=== PATIENT | female | born 1950 | race Caucasian/White ===

== ENCOUNTER 2019-07-05 08:05 | Observation (INO) | payer MEDICARE, BC ==
--- NOTE | 2019-06-21 16:32 | HP ---
HISTORY AND PHYSICAL: DATE OF ADMISSION/SURGERY: 07/05/19 DATE OF OFFICE VISIT: 06/20/19 SURGEON: Kelsea Adhikari MD * (DICTATED BY WILLIS PASTOR) PROCEDURE: Right total knee arthroplasty. CHIEF COMPLAINT: Right knee pain. HISTORY OF PRESENT ILLNESS: Ms. Birch is a 69-year-old female with end- stage osteoarthritis of the right knee. She has failed conservative treatment and elected to proceed with a right total knee arthroplasty. PAST MEDICAL HISTORY: Morbid obesity, hypertension, hypothyroidism, and GERD. PAST SURGICAL HISTORY: Hysterectomy and cataract removal. CURRENT MEDICATIONS: 1. Carafate 2 teaspoons 4 times a day. 2. Omeprazole 40 mg a day. 3. Levothyroxine 137 mcg a day. ALLERGIES: To LEVAQUIN. FAMILY HISTORY: Coronary artery disease and diabetes. SOCIAL HISTORY: She is a 68-year-old female. She lives with her . She does not smoke. REVIEW OF SYSTEMS: A complete 14-point review of systems was reviewed with the patient. It was positive for hypothyroidism and GERD. She denies history of DVT, PE, hepatitis, HIV, or anesthesia problems. PHYSICAL EXAMINATION GENERAL: She is well developed, well nourished, in no acute distress. VITAL SIGNS: She stands 5 feet 6 inches tall, weighs approximately 280 pounds. The patient declined to perform a weight. Blood pressure is 172/100, heart rate is 76. HEENT: Normocephalic, atraumatic. NECK: Supple. No palpable lymph nodes. PULMONARY: The lungs are clear to auscultation bilaterally. CARDIO: Regular rate and rhythm. Strong S1, S2. ABDOMEN: Soft, nontender, nondistended. NEUROLOGICAL: She is alert and oriented x3. MUSCULOSKELETAL: Right lower extremity: The skin is intact. There are no open wounds or abrasions. There is a moderate effusion of the right knee joint. Range of motion is 10 to 100 degrees of flexion. She is able to dorsiflex and plantarflex, has a 2+ dorsalis pedis pulse and intact sensation. ASSESSMENT AND PLAN: Ms. Birch is a 68-year-old female with end-stage osteoarthritis of the right knee. She has failed conservative treatment and elected to proceed with a right total knee arthroplasty. The surgery is scheduled for 07/05/[address] Adhikari discussed the risks and benefits of the surgery at today's visit and all of her questions were answered. She will follow up with Dr. Adhikari 2 weeks after the surgery. WILLIS PASTOR [id number]/[facility] #: [id number] ERLINDA
[~2019-07-05 08:05] MED LIST: Acetaminophen TAB* 325 MG PO ONE; Gabapentin CAP(*) 300 MG PO ONE; Lactated Ringers 1000 ML Bag* 1,000 ML IV SCH; celeCOXIB CAP* 200 MG PO ONE
--- OUTSIDE RECORDS SUMMARY | 2019-07-05 08:09 | XMS REPORT | Continuity of Care Document ---
:1950 External Reference #:[id number] Author Name Junaid Enriquez DO Address [address] [place] [address] Care Team Providers Name Role Phone Kelsea Adhikari DR - Adult Care Team Information Manager Human Resources [phone] Reconstructive Orthopaedic Surgery Problems Active Problems Provider Date Chronic sinusitis Junaid Enriquez DO Onset: 08/15/2012 Hypothyroidism Junaid Enriquez DO Onset: 08/15/2012 Gastroesophageal reflux disease Junaid Enriquez DO Onset: 08/15/2012 Obesity Junaid Enriquez DO Onset: 08/15/2012 Benign essential hypertension Junaid nEriquez DO Onset: 08/15/2012 Benign hypertensive heart disease without Zaire Lima MD Onset: 2011 congestive heart failure Mitral valve disorder Zaire Lima MD Onset: 04/28/2012 Morbid obesity Zaire Lima MD Onset: 04/28/2012 Edema Junaid Enriquez DO Onset: 05/22/2014 Type 2 diabetes mellitus Junaid Enriquez DO Onset: 10/14/2014 Peptic reflux disease Junaid Enriquez DO Onset: 05/22/2014 Peripheral venous insufficiency Zaire Lima MD Onset: 10/05/2017 Social History Type Date Description Comments Sex Unknown ETOH Use Denies alcohol use Tobacco Use Start: Unknown Patient has never smoked Recreational Drug Use Denies Drug Use Smoking Status Reviewed: 04/09/19 Patient has never smoked Allergies, Adverse Reactions, Alerts Active Allergies Reaction Severity Comments Date Levaquin SOB, racing heart 04/22/2014 Mold 06/04/2014 Environmental 06/04/2014 [place] Thyroid "Foggy", Itchy, SOB, Diarrhea 07/25/2017 Escitalopram Severe Headache, Sweating, SOB 07/25/2017 Glipizide Extreme Heartburn 03/01/2019 Glyburide Dizziness 03/06/2019 Medications Active Medications SIG Qnty Indications Ordering Date Provider Omeprazole 1 by mouth every 90caps Junaid Enriquez, 01/04/[address]aps[address] DO DR Levocetirizine 1 by mouth every 90tabs Junaid Enriquez, 09/27/2018 Dihydrochloride day DO 5mg Tablets Levothyroxine Sodium 1 by mouth every 90tabs Junaid Enriquez, 08/15/2018 day DO 137mcg Tablets Meloxicam take one tablet by 30tabs Junaid Enriquez, 06/08/2018 15mg Tablets mouth every day DO prn pain with food Fluticasone Propionate 1 spray each 16gm J32.9 Junaid Enriquez, 10/01/2017 nostril 1-2 times DO 50mcg/Act Suspension a day Ventolin HFA 2 puffs every 4 1units 466.0 Junaid Enriquez, 06/04/2014 108(90Base) hours as needed DO mcg/Act Aerosol for sob/cough Carafate 10 milliliters by 1260ml Junaid Enriquez, 11/01/2012 1GM/10ML mouth every 6 DO Suspension hours as needed for heartburn Probiotic 1 by mouth every Unknown Capsules day Tumeric 1 po daily Unknown Multivitamin Adults 1 by mouth every Unknown 50+ day Adlt 50+ Tablets Tramadol HCL one or two by Unknown 50mg Tablets mouth four times a day as needed pain History Medications Amoxicillin/Clavulanate 1 by mouth 14tabs J32.9 Mina, 04/19/2019 - Potassium twice a day DO Junaid 04/26/2019 875-125mg Tablets Glyburide 1 by mouth 7tabs Mina, 03/01/2019 - 2.5mg Tablets every day DO Junaid 03/06/2019 Glipizide ER 1 by mouth 90tabs Mina, 01/04/2019 - 2.5mg Tablets ER 24HR every day DO Junaid 03/01/2019 Azithromycin 2 by mouth x 6tabs Mina, 01/04/2019 - 250mg Tablets 1, then 1 by Junaid 01/09/2019 mouth daily x 4 days Medications Administered in Office Medication SIG Qnty Indications Ordering Provider Date Depo Medrol 80 MG Junaid Enriquez, 02/15/2018 Injection Depo Medrol 40 MG Junaid Enriquez, 02/27/2016 Injection Depo Medrol 80 MG Junaid Enriquez, DO 09/10/2015 Injection Immunizations CPT Code Status Date Vaccine Reaction Lot # [id number] Given 03/05/2019 Flu Vaccine NOS 30320 Given 08/16/2018 Shingrix (Shingles) Zoster Vaccine HZV, Recombinant, Subunit, Adj 54978 Given 02/24/2018 Fluzone Highdose Age 65 And Over Preservative & Antibiotic Free 70680 Given 07/13/2017 Pneumococcal 23 Immunization Im inj completed, Pt [id number] Adult Or Immunosuppressed tolerated well Patient Q2039 Given 02/13/2017 [place] [address] Given 02/19/2016 Prevnar 13 Pneumococal Conjugate Vaccine 78365 Given 02/19/2016 Fluzone Highdose Age 65 And Over Preservative & Antibiotic Free 19110 Given 03/04/2014 Fluzone Highdose Age 65 And [place] Over Preservative & Antibiotic Free 20278 Given 02/09/2013 Afluria Or Fluvirin Flu Vac Intramuscular 87432 Given 08/15/2012 Tdap (Adacel) Ages 7 And Above Only 52602 Given 03/11/2010 Afluria Or Fluvirin Flu Vac [id number] Intramuscular 13209 Given 03/01/2008 Afluria Or Fluvirin Flu Vac Intramuscular 29071 Given 02/28/2007 Afluria Or Fluvirin Flu Vac Intramuscular 17735 Refused 02/15/2018 Fluzone Highdose Age 65 And Over Preservative & Antibiotic Free Vital Signs Date Vital Result Comment 06/07/2019 9:30am Heart Rate 76 /min BP Systolic 136 mmHg BP Diastolic 84 mmHg Respiratory Rate 20 /min 04/09/2019 10:04am Heart Rate 80 /min BP Systolic 138 mmHg BP Diastolic 86 mmHg Respiratory Rate 24 /min Height 66 inches 5'6" Results Test Acquired Date Facility Test Result H/L Range Note CBC with Auto Diff-fcmg 06/07/2019 [facility] WBC 7.1 K/uL 4.1-11.0 1 RBC 4.87 M/uL 4.00-5.40 2 Hemoglobin 14.2 gm/dL 12.0-16.0 3 Hematocrit 42.4 % 36.0-47.0 4 MCV 87.0 fL 80.0-95.0 5 MCH 29.1 pg 27.0-32.0 6 MCHC 33.4 g/dL 32.0-36.0 7 RDW 13.6 % 10.5-14.5 8 PLT Count 213 K/ul 150-400 9 MPV 8.8 FL 7.1-10.7 Neutrophil 60.5 % 35.0-75.0 10 Lymphocyte 27.0 % 16.0-52.0 11 Monocyte 9.2 % High 0.0-8.0 12 Eosinophil 2.2 % 0.0-5.0 Basophil 1.1 % 0.0-4.0 Abs Neutrophils 4.3 K/uL 1.8-7.7 13 Abs Lymphocytes 1.9 K/uL 1.2-4.8 14 Abs Monocytes 0.7 K/uL 0.0-0.8 15 Abs Eosinophils 0.2 K/uL 0.0-0.5 16 Abs Basophils 0.1 K/uL 0.0-0.2 17 Basic (BMP) 06/07/2019 [facility] Sodium 139 mmol/L 135-146 18 Potassium 4.3 mmol/L 3.5-5.2 Chloride# 103 mmol/L 97-110 19 Carbon Dioxide 27 mmol/L 24-34 Glucose 128 mg/dL High 70-105 BUN 11 mg/dL 6-26 Creatinine 0.7 mg/dL 0.5-1.4 Calcium 9.3 mg/dL 8.5-10.5 20 Female Egfr 88 >60 21 Male Egfr 96 >60 22 Anion Gap 9 mmol/L 5-15 23 [facility] 7.3 % High 4.1-5.9 Estimated Average Glucose Calc 163 mg/dL High 71-140 Laboratory test 04/04/2019 [facility] TSH 0.41 uIU/mL 0.35-4.94 finding Laboratory test 03/09/2019 [facility] H. Pylori Stool Ag SEE NOTE 24 finding Hemoglobin A1c 12/28/2018 [facility] Hemoglobin A1c 7.6 % High 4.1-5.9 Estimated Average Glucose Calc 171 mg/dL High 71-140 CBC with Auto Diff-fcmg 12/28/2018 [facility] WBC 7.7 K/uL 4.1-11.0 RBC 4.96 M/uL 4.00-5.40 Hemoglobin 14.4 gm/dL 12.0-16.0 Hematocrit 43.1 % 36.0-47.0 MCV 86.7 fL 80.0-97.0 MCH 28.9 pg 27.0-32.0 MCHC 33.4 g/dL 32.0-36.0 RDW 14.2 % 11.5-14.5 PLT Count 246 K/ul 140-400 MPV 8.8 FL 7.1-10.7 Neutrophil 58.8 % 35.0-75.0 Lymphocyte 28.9 % 16.0-52.0 Monocyte 8.8 % 2.0-10.0 Eosinophil 2.9 % 0.0-5.0 Basophil 0.6 % 0.0-4.0 Abs Neutrophils 4.5 K/uL 2.1-8.0 Abs Lymphocytes 2.2 K/uL 0.8-5.5 Abs Monocytes 0.7 K/uL 0.1-1.0 Abs Eosinophils 0.2 K/uL 0.0-0.5 Abs Basophils 0.0 K/uL 0.0-0.3 Basic (BMP) 12/28/2018 [facility] Sodium 140 mmol/L 135-146 25 Potassium 4.2 mmol/L 3.5-5.2 Chloride# 103 mmol/L 97-110 26 Carbon Dioxide 24 mmol/L 24-34 Glucose 172 mg/dL High 70-105 BUN 12 mg/dL 6-26 Creatinine 0.8 mg/dL 0.5-1.4 Calcium 9.7 mg/dL 8.5-10.5 27 Female Egfr 78 >60 28 Male Egfr 92 >60 29 Anion Gap 13 mmol/L 5-15 30 Laboratory test finding 12/28/2018 [facility] TSH 0.71 uIU/mL 0.35-4.94 Lipid Treatment 12/28/2018 [facility] Cholesterol 206 mg/dL High 50-199 Triglycerides 161 mg/dL 30-200 HDL 46 mg/dL 35-85 31 Chol/ HDL Ratio 4.5 ratio 3.7-5.6 VLDL 32 mg/dL High 2-29 LDL (Calc) 128 mg/dL High 20-99 32 Alt 23 U/L 3-42 Ast 23 U/L 8-42 1 Updated Reference Range 03/2019 2 Updated Reference Range 03/2019 3 Updated Reference Range 03/2019 4 Updated Reference Range 03/2019 5 Updated Reference Range 03/2019 6 Updated Reference Range 03/2019 7 Updated Reference range 03/2019 8 Updated Reference range 03/2019 9 Updated Reference Range 03/2019 10 Updated Reference Range 03/2019 11 Updated Reference Range 03/2019 12 Updated Reference Range 03/2019 13 Updated Reference Range 03/2019 14 Updated Reference Range 03/2019 15 Updated Reference Range 03/2019 16 Updated Reference Range 03/2019 17 Updated Reference Range 03/2019 18 Updated reference range on new analyzer 19 Updated reference range on new analyzer 20 Updated reference range 09-13-2018 21 Concerning GFR Guidelines for Americans: Normal function or mild renal disease, if clinically at risk: >/= 60 mL/min Moderately decreased: 30-59 Severely decreased: 15-29 Renal failure: <15 There is reduced accuracy above 60ml/min/1.73 m squared, but the numeric value may be clinically useful in the near 60 range 22 Concerning GFR Guidelines: Normal function or mild renal disease, if clinically at risk: >/= 60 mL/min Moderately decreased: 30-59 Severely decreased: 15-29 Renal failure: <15 There is reduced accuracy above 60ml/min/1.73 m squared, but the numeric value may be clinically useful in the near 60 range Glomerular Filtration Rate (GFR) is estimated based on the CKD-EPI equation, which assumes a steady state for creatinine as recommended by the National Kidney Disease Education Program in conjunction with the National Institutes of Health and the National Kidney Foundation. Clinical conditions in which it may be necessary to measure GFR by using clearance methods include extremes of age and body size, severe malnutrition or obesity, diseases of skeletal muscle, paraplegia or quadriplegia, vegetarian diet, rapidly changing kidney function, and calculation of the dose of potentially toxic drugs that are excreted by the kidneys. 23 Updated Reference Range 24 SPECIMEN DESCRIPTION STOOL RESULT NEGATIVE FOR H. PYLORI ANTIGEN BY EIA REPORT STATUS FINAL 03/10/2019 Unless otherwise specified, testing performed by [facility] [address] [place] [id number] 25 Updated reference range on new analyzer 26 Updated reference range on new analyzer 27 Updated reference range 09-13-2018 28 Concerning GFR Guidelines for Americans: Normal function or mild renal disease, if clinically at risk: >/= 60 mL/min Moderately decreased: 30-59 Severely decreased: 15-29 Renal failure: <15 There is reduced accuracy above 60ml/min/1.73 m squared, but the numeric value may be clinically useful in the near 60 range 29 Concerning GFR Guidelines: Normal function or mild renal disease, if clinically at risk: >/= 60 mL/min Moderately decreased: 30-59 Severely decreased: 15-29 Renal failure: <15 There is reduced accuracy above 60ml/min/1.73 m squared, but the numeric value may be clinically useful in the near 60 range Glomerular Filtration Rate (GFR) is estimated based on the CKD-EPI equation, which assumes a steady state for creatinine as recommended by the National Kidney Disease Education Program in conjunction with the National Institutes of Health and the National Kidney Foundation. Clinical conditions in which it may be necessary to measure GFR by using clearance methods include extremes of age and body size, severe malnutrition or obesity, diseases of skeletal muscle, paraplegia or quadriplegia, vegetarian diet, rapidly changing kidney function, and calculation of the dose of potentially toxic drugs that are excreted by the kidneys. 30 Updated Reference Range -2017 31 Per NCEP ATP III Guidelines: Results lower than 40 mg/dL are suggestive of increased risk for coronary artery disease. Results > or = to 60 mg/dL are considered a negative risk factor. 32 Per NCEP ATP III Guidelines: Normal Population <130 Patients with medical conditions: CHD/DM Optimal: <100 Borderline high: 130-159 High: 160-189 Very high: >189 Procedures Date Code Description Status 04/09/2019 93061 Brief Emotional/Behav Assessment W/ Scoring Doc Per Completed Standard Inst 03/14/2017 [id number] Mammogram Completed 02/27/2015 [id number] Mammogram Completed 02/27/2009 [id number] Mammogram Completed 01/15/2004 [id number] Flexible Sigmoidoscopy Completed Medical Devices Description No Information Available Encounters Type Date Location Provider Dx Diagnosis Office Visit 04/09/2019 Junaid Oliveira DO Z00.00 Encntr for general 10:00a adult medical exam w/o abnormal findings E11.9 Type 2 diabetes mellitus without complications I10 Essential (primary) hypertension F41.9 Anxiety disorder, unspecified K21.9 Gastro-esophageal reflux disease without esophagitis M79.7 Fibromyalgia M10.9 Gout, unspecified R60.9 Edema, unspecified J32.9 Chronic sinusitis, unspecified M54.5 Low back pain M17.0 Bilateral primary osteoarthritis of knee Z13.31 Encounter for screening for depression J30.9 Allergic rhinitis, unspecified E66.01 Morbid (severe) obesity due to excess calories E03.9 Hypothyroidism, unspecified E78.2 Mixed hyperlipidemia Office Visit 03/01/2019 3:15p [facility] Junaid Enriquez DO E11.9 Type 2 diabetes mellitus without complications K21.9 Gastro-esophageal reflux disease without esophagitis Office Visit 01/04/2019 8:30a [facility] Junaid Enriquez DO E11.9 Type 2 diabetes mellitus without complications I10 Essential (primary) hypertension F41.9 Anxiety disorder, unspecified K21.9 Gastro-esophageal reflux disease without esophagitis M79.7 Fibromyalgia M10.9 Gout, unspecified R60.9 Edema, unspecified J32.9 Chronic sinusitis, unspecified M54.5 Low back pain M17.0 Bilateral primary osteoarthritis of knee J30.9 Allergic rhinitis, unspecified E66.01 Morbid (severe) obesity due to excess calories E03.9 Hypothyroidism, unspecified E78.2 Mixed hyperlipidemia Assessments Date Code Description Provider 06/07/2019 Z01.810 Encounter for preprocedural cardiovascular Junaid Enriquez DO examination 06/07/2019 M17.0 Bilateral primary osteoarthritis of knee Junaid Enriquez, 06/07/2019 E11.9 Type 2 diabetes mellitus without EnriquezJunaid longoria DO complications 06/07/2019 K21.9 Gastro-esophageal reflux disease without Junaid Enriquez DO esophagitis 06/07/2019 M79.7 Fibromyalgia Junaid Enriquez, 06/07/2019 M10.9 Gout, unspecified EnriquezJunaid longoria, 06/07/2019 R60.9 Edema, unspecified Junaid Enriquez, 06/07/2019 J32.9 Chronic sinusitis, unspecified EnriquezJunaid longoria, 06/07/2019 M54.5 Low back pain Junaid Enriquez DO 06/07/2019 J30.9 Allergic rhinitis, unspecified EnriquezJunaid longoria, 06/07/2019 E03.9 Hypothyroidism, unspecified EnriquezJunaid DO 06/07/2019 E78.2 Mixed hyperlipidemia EnriquezJunaid, DO 06/07/2019 I10 Essential (primary) hypertension EnriquezJunaid longoria, DO 06/07/2019 F41.9 Anxiety disorder, unspecified Enriquez, Junaid, DO 06/07/2019 E66.01 Morbid (severe) obesity due to excess EnriquezJunaid longoria, DO calories 06/07/2019 I10 Essential (primary) hypertension Schedule, Laboratory 06/07/2019 I10 Essential (primary) hypertension [facility] 04/09/2019 Z00.00 Encounter for general adult medical uJnaid Enriquez, examination without abnormal findings 04/09/2019 E11.9 Type 2 diabetes mellitus without EnriquezJunaid longoria, DO complications 04/09/2019 I10 Essential (primary) hypertension Junaid Enriquez, DO 04/09/2019 F41.9 Anxiety disorder, unspecified EnriquezJunaid longoria, DO 04/09/2019 K21.9 Gastro-esophageal reflux disease without EnriquezJunaid, DO esophagitis 04/09/2019 M79.7 Fibromyalgia EnriquezJunaid, DO 04/09/2019 M10.9 Gout, unspecified EnriquezJunaid, DO 04/09/2019 R60.9 Edema, unspecified EnriquezJunaid, DO 04/09/2019 J32.9 Chronic sinusitis, unspecified Enriquez, Junaid, DO 04/09/2019 M54.5 Low back pain Junaid Enriquez, DO 04/09/2019 M17.0 Bilateral primary osteoarthritis of knee Junaid Enriquez, DO 04/09/2019 Z13.31 Encounter for screening for depression Junaid Enriquez, DO 04/09/2019 J30.9 Allergic rhinitis, unspecified EnriquezJunaid, DO 04/09/2019 E66.01 Morbid (severe) obesity due to excess EnriquezJunaid longoria, DO calories 04/09/2019 E03.9 Hypothyroidism, unspecified EnriquezJunaid, DO 04/09/2019 E78.2 Mixed hyperlipidemia EnriquezJunaid longoria, DO 04/04/2019 E11.9 Type 2 diabetes mellitus without EnriquezJunaid, DO complications 04/04/2019 E11.9 Type 2 diabetes mellitus without Schedule, Laboratory complications 04/04/2019 E03.9 Hypothyroidism, unspecified EnriquezJunaid, DO 04/04/2019 E03.9 Hypothyroidism, unspecified Schedule, Laboratory 04/04/2019 E11.9 Type 2 diabetes mellitus without [facility] complications 04/04/2019 E03.9 Hypothyroidism, unspecified [facility] 03/01/2019 E11.9 Type 2 diabetes mellitus without Enriquez, Junaid, DO complications 03/01/2019 K21.9 Gastro-esophageal reflux disease without Enriquez, Junaid, DO esophagitis 01/04/2019 E11.9 Type 2 diabetes mellitus without Enriquez, Junaid, DO complications 01/04/2019 I10 Essential (primary) hypertension Junaid Enriquez, DO 01/04/2019 F41.9 Anxiety disorder, unspecified EnriquezJunaid longoria, DO 01/04/2019 K21.9 Gastro-esophageal reflux disease without Enriquez, Junaid, DO esophagitis 01/04/2019 M79.7 Fibromyalgia Junaid Enriquez, DO 01/04/2019 M10.9 Gout, unspecified EnriquezJunaid longoria, DO 01/04/2019 R60.9 Edema, unspecified EnriquezJunaid, DO 01/04/2019 J32.9 Chronic sinusitis, unspecified EnriquezJunaid, DO 01/04/2019 M54.5 Low back pain Junaid Enriquez, DO 01/04/2019 M17.0 Bilateral primary osteoarthritis of knee Junaid Enriquez, DO 01/04/2019 J30.9 Allergic rhinitis, unspecified EnriquezJunaid, DO 01/04/2019 E66.01 Morbid (severe) obesity due to excess Junaid Enriquez, calories 01/04/2019 E03.9 Hypothyroidism, unspecified EnriquezJunaid, DO 01/04/2019 E78.2 Mixed hyperlipidemia Junaid Enriquez, DO 12/28/2018 E11.9 Type 2 diabetes mellitus without EnriquezJunaid, complications 12/28/2018 E11.9 Type 2 diabetes mellitus without Schedule, Laboratory complications 12/28/2018 I10 Essential (primary) hypertension Junaid Enriquez, DO 12/28/2018 I10 Essential (primary) hypertension Schedule, Laboratory 12/28/2018 E11.9 Type 2 diabetes mellitus without [facility] complications 12/28/2018 I10 Essential (primary) hypertension [facility] Plan of Treatment Future Appointment(s):06/15/2019 11:15 am - Zaire Lima MD at [facility] Mxadxrfltk88/20/2020 10:45 am - Zaire Lima MD at [facility] Fyjcbpmctm20/23 /2020 - Junaid Enriquez, Z01.810 Encounter for preprocedural cardiovascular examinationFollow up:The patient will call to schedule an appointment in August.M17.0 Bilateral primary osteoarthritis of kneeComments:Surgery: Right total knee replacement.Date: 07/05/19Physician: [facility] Adh[facility]ari [facility].EKG details: Cardiac clearance with Dr. Lima next week.Medications that needs to be stopped: Vitamins and Meloxicam.E11.9 Type 2 diabetes mellitus without complicationsComments:The patient's labs were reviewed with the patient that the A1c was at 7.31. Discussed with the patient that they will benefit from maintaining a diabetic diet and a regular exercise regimen. Recommended to cut back on pasta, potatoes , and breads.2. Advised the patient to check the sugars on regular basis.3. We will obtain blood work.4. We will continue to monitor.K21.9 Gastro-esophageal reflux disease without esophagitisComments:1. Advised the patient to continue taking Omeprazole as needed.2. Encouraged the patient to avoid spicy, greasy food, Juices containing citrus, sauce, chocolates, alcohol.3 Advised the patient to eat small multiple meals.4. Advised the patient to limit caffeine and carbonated beverages.5. Advised not to eat three hours prior to sleeping.6. Encouraged the patient to elevate the head and sleep during night.7. Advised to maintain a healthy weight.M79.7 FibromyalgiaComments:The patient has not been taking Tramadol consistently. I encouraged the patient to take the medication consistently. The patient has minimal benefit with the Hydrocodone, and I told her to call me ifmariele thinks that she has more benefit of the medication when compared to Tramadol. I recommended thepatient to take Meloxicam and told her to take her as directed. She has been thinking of doing replacements. I encouraged the patient to follow up with the Ortho as scheduled. We will continue to monitor.M10.9 Gout, unspecifiedComments: Symptoms have improved.1. Encouraged the patient to keep himself well hydrated.2. Encouraged the patient to avoid alcohol.3. Encouraged the patent to elevate the foot with pillows so it is higher than the chest and may help with swelling.4. Encouraged the patient to relax as stress can aggravate gout.R60.9 Edema, lbtgbiauoiiA53.9 Chronic sinusitis, wrnvghkezvhM95.5 Low back painJ30.9 Allergic rhinitis, etdxqayrnhqX01.9 Hypothyroidism, unspecifiedComments:Labs reviewed with the patient in detail. TSH was at well controlled at 0.41.1. Continue taking Levothyroxine 137 mcg.2. May benefit with eating eggs, meats, fish, most fruit and vegetables, gluten-free grains and seeds, dairy and non- caffeinated beverages3. Will recheck TSH in the future.4. We will continue to monitor.E78.2 Mixed hyperlipidemiaComments:Condition reviewed with the patient in detail. LDL is elevated at 136/841. Encouraged the patient to decrease the total amount of fat. Choose lean meats, fat free or 1% fat milk, and low-fat dairy products such as yogurt and cheese.2. Encouraged the patient to replace unhealthy fats with healthy fats.3. Encouraged the patient to eat foods high in fiber.4. We will recheck it during next blood draw.I10 Essential (primary) hypertensionComments:Today, the patient's BP is slightly elevated at 136/861. The patient will benefit from maintaining alow sodium diet, cut down caffeine intake2. The patient was encouraged to monitor BP periodically athome and maintain a log of the same to bring along during the next visit for comparison.3. Advised the patient to stay hydrated.4. Advised the patient to maintain a normal cardiac exercise regimen. 5. We will continue to monitor.F41.9 Anxiety disorder, unspecifiedComments:Discontinued Citalopram secondary to side effects. Has been doing well off medication. Disussed with her about counselling but she refused at the present time. We will continue to monitor.E66.01 Morbid (severe) obesity due to excess caloriesComments:The patient was advised on healthy diet and a regular exercise regimen. We discussed the risks associated with obesity and high levels of body fat. We will continue to monitor the patient's weight and the patient is advised to reduce the number of calories in diet. Functional Status Description No Information Available Mental Status Description No Information Available Referrals Description No Information Available
--- OUTSIDE RECORDS SUMMARY | 2019-07-05 08:09 | XMS REPORT | Continuity of Care Document ---
:1950 External Reference #:[id number] Author Name Kelsea Adhikari M.D. 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 Onset: 02/12/2011 Note: Well controlled on candesartan, 07/2010 BUN/Cr 13/0.7 Gastroesophageal reflux disease Luana rAtis M.D. Onset: 02/12/2011 Increased frequency of urination Luana Artis M.D. Onset: 02/12/2011 Type 2 diabetes mellitus Luana Artis M.D. Onset: 04/14/2011 Giardiasis Luana Artis M.D. Onset: 06/16/2011 Allergic rhinitis Luana Artis M.D. Onset: 08/25/2011 Impaired fasting glycaemia Luana Artis M.D. Onset: 10/27/2011 Myalgia & Myositis Unspecified Luana Artis M.D. Onset: 02/28/2012 Localized, primary osteoarthritis Saroj Boss M.D. Onset: 10/11/2018 Social History Type Date Description Comments Sex Unknown ETOH Use Denies alcohol use Tobacco Use Start: Unknown Patient has never smoked Recreational Drug Use Denies Drug Use Smoking Status Reviewed: 05/25/19 Patient has never smoked Allergies, Adverse Reactions, Alerts Active Allergies Reaction Severity Comments Date Levaquin SOB, Heart palpitations, agitation Moderate 02/12/2011 Medications Active Medications SIG Qnty Indications Ordering Date Provider Carafate Give 2 Teaspoonfuls 420units Luana Steff, 09/24/2011 1GM/10ML By Mouth Four Times M.D. Suspension A Day Before Meals And AT Bedtime Omeprazole 1 po q day 180caps 530.81 Luana Steff, 08/04/[address] Taveras For Her 50+ 1 po qd Luana Artis, 02/12/2011 M.D. Tablets Levothyroxine Sodium 1 by mouth every Unknown day 150mcg Tablets Probiotic 1 by mouth every Unknown Capsules day Tumersaid daily Unknown Tablets History Medications Tramadol HCL one tablet every 30tabs M17.0 Saroj Boss, 01/17/2019 - 50mg 6-8 hours as M.D. 05/24/2019 Tablets needed for pain Medications Administered in Office Medication SIG Qnty Indications Ordering Provider Date Synvisc Or Synvisc-One Injection Saroj Boss M.D. 01/31/2019 1 MG Injection Synvisc Or Synvisc-One Injection Saroj Boss M.D. 01/31/2019 1 MG Injection Synvisc Or Synvisc-One Injection Kelsea Adhikari M.D. 01/24/2019 1 MG Injection Synvisc Or Synvisc-One Injection Kelsea Adhikari M.D. 01/24/2019 1 MG Injection Synvisc Or Synvisc-One Injection WILLIS Fuentes 01/17/2019 1 MG Injection Synvisc Or Synvisc-One Injection WILLIS Fuentes 01/17/2019 1 MG Injection Celestone 3 mg and 3mg Onofre Negrete MD 07/14/2018 Injection Celestone 3 mg and 3mg Onofre Negrete MD 07/22/2017 Injection Immunizations CPT Code Status Date Vaccine Lot # [id number] Given 02/28/2012 Fluzone Vaccine [id number] Given 02/28/2012 Pneumonia Vaccine [id number] Given 10/27/2011 Zoster (Zostavax) [id number] Given 02/12/2011 Influenza Virus 3Yrs & Over [id number] Refused 08/04/2011 Zoster (Zostavax) Vital Signs Date Vital Result Comment 05/25/2019 10:55am Height 66 inches 5'6" Weight 280.00 lb Heart Rate 60 /min BP Systolic 160 mmHg BP Diastolic 100 mmHg Respiratory Rate 18 /min Pain Level 8 BMI (Body Mass Index) 45.2 kg/m2 01/31/2019 1:18pm Height 66 inches 5'6" Weight 275.00 lb Heart Rate 74 /min BP Systolic 148 mmHg BP Diastolic 82 mmHg Body Temperature 99.3 F Pain Level 7 BMI (Body Mass Index) 44.4 kg/m2 Results Description No Information Available Procedures Date Code Description Status 01/31/201932190 Inject/Drain Joint/Bursa Major W/O US Completed 01/24/201923273 Inject/Drain Joint/Bursa Major W/O US Completed 01/17/2019 Inject/Drain Joint/Bursa Major W/O US Completed 03/21/2012 [id number] Mammogram Completed 02/26/2011 [id number] Mammogram Completed Medical Devices Description No Information Available Encounters Description No Information Available Assessments Date Code Description Provider 05/25/2019 M17.0 Bilateral primary osteoarthritis of knee Kelsea Adhikari M.D. 05/25/2019 M25.561 Pain in right knee Kelsea Adhikari M.D. 05/25/2019 M25.562 Pain in left knee Kelsea Adhikari M.D. 05/25/2019 M25.462 Effusion, left knee Kelsea Adhikari M.D. 05/25/2019 M25.461 Effusion, right knee Kelsea Adhikari M.D. 01/31/2019 M17.0 Bilateral primary osteoarthritis of knee Saroj Boss M.D. 01/31/2019 M25.561 Pain in right knee Saroj Boss M.D. 01/31/2019 M25.562 Pain in left knee Saroj Boss M.D. 01/31/2019 M25.462 Effusion, left knee Saroj Boss M.D. 01/31/2019 M25.461 Effusion, right knee Saroj Boss M.D. 01/24/2019 M17.0 Bilateral primary osteoarthritis of knee Kelsea Adhikari M.D. 01/24/2019 M25.561 Pain in right knee Kelsea Adhikari M.D. 01/24/2019 M25.562 Pain in left knee Kelsea Onofre, M.D. 01/24/2019 M25.462 Effusion, left knee Kelsea Adhikari M.D. 01/24/2019 M25.461 Effusion, right knee Kelsea Adhikari M.D. 01/17/2019 M17.0 Bilateral primary osteoarthritis of knee Gladys Nuñez, WILLIS 01/17/2019 M17.0 Bilateral primary osteoarthritis of knee Saroj Boss M.D. Plan of Treatment 05/25/2019 - Kelsea Adhikari M.D.M17.0 Bilateral primary osteoarthritis of kneeFollow up:Follow up: 7-10 days before msjcioiD61.561 Pain in right kneeM25.562 Pain in left kneeM25.462 Effusion, left kneeM25.461 Effusion, right knee Functional Status Description No Information Available Mental Status Description No Information Available Referrals Description No Information Available
--- OUTSIDE RECORDS SUMMARY | 2019-07-05 08:09 | XMS REPORT | Continuity of Care Document ---
:1950 External Reference #:[id number] Author Name Kelsea Adhikari M.D. (transmitted by agent of provider Yael Starkey) Address [address] [place] [phone] Care Team Providers Name Role Phone Junaid Enriquez DO - Family Medicine Care Team Information Pediatric Neurologist [phone] Problems Active Problems Provider Date Essential hypertension Luana Artis M.D. Onset: 02/12/2011 Note: Well controlled on candesartan, 07/2010 BUN/Cr 13/0.7 Gastroesophageal reflux disease Luana Artis M.D. Onset: 02/12/2011 Increased frequency of urination [...] Use Denies Drug Use Smoking Status Reviewed: 06/20/19 Patient has never smoked Allergies, Adverse Reactions, Alerts Active Allergies Reaction Severity Comments Date Levaquin SOB, Heart palpitations, agitation Moderate 02/12/2011 Medications Active Medications SIG Qnty Indications Ordering Date Provider Tramadol HCL one tablet every 12 30tabs M17.0 Saroj Boss, 05/30/2019 50mg hours as needed for M.D. Tablets pain Carafate Give 2 Teaspoonfuls 420units Luana Artis, 09/24/2011 1GM/10ML By Mouth Four Times M.D. Suspension A Day Before Meals And AT Bedtime Omeprazole 1 po q day 180caps 530.81 Luana Artis, 08/04/[address] Levothyroxine Sodium 1 by mouth every Unknown day 150mcg Tablets History Medications Tramadol HCL one tablet [...] Lot # [id number] Given 02/28/2012 Fluzone Vaccine [id number] Given 02/28/2012 Pneumonia Vaccine 14545 Given 10/27/2011 Zoster (Zostavax) [id number] 51490 Given 02/12/2011 Influenza Virus 3Yrs & Over [id number] Refused 08/04/2011 Zoster (Zostavax) Vital Signs Date Vital Result Comment 06/20/2019 10:09am Height 66 inches 5'6" Heart Rate 76 /min BP Systolic Sitting 172 mmHg BP Diastolic Sitting 100 mmHg Respiratory Rate 16 /min Pain Level 7 05/25/2019 10:55am Height 66 inches 5'6" Weight 280.00 lb Heart Rate 60 /min BP Systolic 160 mmHg BP Diastolic 100 mmHg Respiratory Rate 18 /min Pain Level 8 BMI (Body Mass Index) 45.2 kg/m2 Results Description No Information Available Procedures Date Code Description Status 01/31/2019 Inject/Drain Joint/Bursa Major W/O US Completed 01/24/2019 Inject/Drain Joint/Bursa Major W/O US Completed 01/17/2019 Inject/Drain Joint/Bursa Major W/O US Completed 03/21/2012 [id number] Mammogram Completed 02/26/2011 [id number] Mammogram Completed Medical Devices Description No Information Available Encounters Type Date Location Provider Dx Diagnosis Office Visit 05/25/2019 [facility] Kelsea Adhikari, M17.0 Bilateral primary 10:30a at [facility] osteoarthritis of knee M25.561 Pain in right knee M25.562 Pain in left knee M25.462 Effusion, left knee M25.461 Effusion, right knee Assessments Date Code Description Provider 06/20/2019 M17.0 Bilateral primary osteoarthritis of knee Kelsea Adhikari M.D. 06/20/2019 M25.561 Pain in right knee Kelsea Adhikari M.D. 06/20/2019 M25.461 Effusion, right knee Kelsea Adhikari M.D. 05/25/2019 M17.0 Bilateral primary osteoarthritis of knee [...] 01/24/2019 M25.562 Pain in left knee Kelsea Adhikari M.D. 01/24/2019 M25.462 Effusion, left knee Kelsea Adhikari M.D. 01/24/2019 M25.461 Effusion, right knee Kelsea Adhikari M.D. 01/17/2019 M17.0 Bilateral primary osteoarthritis of knee WILLIS Fuentes 01/17/2019 M17.0 Bilateral primary osteoarthritis of knee Saroj Boss M.D. Plan of Treatment Future Appointment(s):07/18/2019 10:30 am - Kelsea Adhikari M.D. at [facility] at Pwrdhh2707/05/2019 4:30 pm - Dejon Garrett PA-C at [facility] at Tbgwix9307/05/2019 4:30 pm - WILLIS Spears at [facility] at Uozblr5007/05/2019 4:30 pm - Kelsea Adhikari M.D. at [facility] at Xaczky1606/20/2019 - Kelsea Adhikari M.D.M17.0 Bilateral primary osteoarthritis of kneeFollow up:Follow up: 2 weeks after jzequzaW28.561 Pain in right kneeM25.461 Effusion, right knee Functional Status Description No Information Available Mental Status Description No Information Available Referrals Description No Information Available
[2019-07-05] MEDS ORDERED: fentaNYL* 50 MCG/ML 2 ML VIAL (100 MCG VIAL) ONE (09:02)
[2019-07-05] MEDS ORDERED: Acetaminophen TAB* 325 MG ONE (09:07)
[2019-07-05] MEDS ORDERED: ceFAZolin 1 GM ADVAN(*) 1 GM ADDV.VIAL IVPB ONE (09:07)
[2019-07-05] MEDS ORDERED: Gabapentin CAP(*) 300 MG ONE (09:07)
[2019-07-05] MEDS ORDERED: celeCOXIB CAP* 200 MG ONE (09:07)
[2019-07-05] MEDS ORDERED: ceFAZolin 2 GM in NS PREMIX(*) 2 GM/100 ML BAG IVPB ONE (09:08)
[2019-07-05] MEDS: Buffered Lidocaine 1% SYRIN* 1 ML/SYRINGE INTRADERM ONE ×2 (09:34→10:09)
[2019-07-05] MEDS ORDERED: ROPIVACAINE 5 MG/ML 30 ML BTL (0.5%) ONE ×2 (09:40→09:45)
[2019-07-05] MEDS ORDERED: Tranexamic Acid 1,000 MG in NS 0.9% 50 ML IV ONE (10:00)
[2019-07-05] MEDS ORDERED: Dexmedetomidine* 200 MCG/2 ML 2 ML VIAL ONE (10:49)
[2019-07-05] MEDS ORDERED: Midazolam* 1 MG/ML 2 ML VIAL (2 MG) ONE ×2 (10:57→11:14)
[2019-07-05] MEDS ORDERED: Bupivacaine 0.5% SDV PF* 30ML VIAL ONE (11:06)
[2019-07-05] MEDS ORDERED: Dexamethasone IV* 4 MG/ML 1 ML (4 MG) ONE (11:07)
[2019-07-05] MEDS ORDERED: Lidocaine 2% PF * 5 ML VIAL ONE (11:07)
[2019-07-05] MEDS ORDERED: Ondansetron INJ* 2 MG/ML VIAL ONE (11:07)
[2019-07-05] MEDS ORDERED: Naloxone* 0.4 MG/ML 1 ML VIAL IV PRN (11:55)
[2019-07-05] MEDS ORDERED: Ondansetron ODT TAB* 4 MG PO PRN (12:32)
[2019-07-05] MEDS ORDERED: Cyclobenzaprine TAB* 10 MG PO PRN (12:32)
[2019-07-05] MEDS ORDERED: diPHENhydraMINE PO* 25 MG PO PRN (12:32)
[2019-07-05] MEDS ORDERED: Ondansetron INJ* 2 MG/ML VIAL IV PRN (12:32)
[2019-07-05] MEDS ORDERED: Magnesium Hydroxide LIQ* 30 ML UDC PO PRN (12:32)
[2019-07-05] MEDS ORDERED: diPHENhydraMINE IV* 50 MG/ML 1 ml VIAL (BENADRYL) IV PRN (12:32)
[2019-07-05] MEDS ORDERED: oxyCODONE/Acetamin 5/325 MG* TAB PO PRN (12:32)
[2019-07-05] MEDS ORDERED: Morphine INJ* 2 MG/ML 1 ML SYRINGE (TWO MG - NEW SYRINGE VERSION) IV PRN (12:32)
[2019-07-05] MEDS ORDERED: Albuterol HFA INHALER* 8 gm MDI INH PRN (12:35)
[2019-07-05] MEDS ORDERED: Fluticasone NASAL SPRAY 50MCG* 16 gm SPRAY BTL BOTH NARES PRN (12:35)
[2019-07-05] MEDS ORDERED: Sucralfate SUSP 1 GM/10 ml 10 ML UDC PO PRN (12:35)
[2019-07-05] MEDS ORDERED: ceFAZolin 1 GM ADVAN(*) 1 GM in NS 0.9% 50 ML* 50 ML IVPB SCH (13:00)
[2019-07-05] MEDS ORDERED: Lactated Ringers 1000 ML Bag* 1,000 ML IV SCH (13:00)
[2019-07-05] MEDS: Acetaminophen TAB* 325 MG PO SCH ×2 (14:46→23:44)
--- NOTE | 2019-07-05 15:34 | PN ---
Progress Note - Progress Note Date of Service: 07/05/19 Note: Pt seen at bedside. She feels well without complaints. Knee pain is well controlled. Denies CP, SOB, dizziness, nausea. Dressing CDI, thigh soft, DF/PF intact, DP2+, sensation intact to light touch distally. Calves supple and nontender.
[2019-07-05] MEDS: oxyCODONE/Acetamin 5/325 MG* TAB PO PRN ×2 (16:53→22:14)
[2019-07-05] MEDS: ceFAZolin 1 GM ADVAN(*) 1 GM in NS 0.9% 50 ML* 50 ML IVPB SCH (16:54)
--- NOTE | 2019-07-05 17:48 | OP ---
Operative Report - Blank - Operative Report Date of Operation: 07/05/19 Note: MELISSA APONTE 1950 Date of Surgery: 07/05/19 Kelsea Adhikari MD Cab Driver: Dejon PEDRO did help throughout the procedure with preparation of the knee, wound retraction, manipulation of the knee, and wound closure. Anesthesiologist: Dr. Cr Anesthesia Type: Spinal Preoperative Diagnosis: Right severe degenerative osteoarthritis of the knee Postoperative Diagnosis: As above Procedure Performed: Right Total Knee Arthroplasty Tourniquet time: 51 minutes Complications: None Specimen: Bone and cartilage from the right knee joint sent to pathology. Hardware Used: Cemented [employer] total knee hardware was used - For the femur a size 6 narrow right legion posterior stabilized femoral component, for the tibia a size 5 right mora II tibial baseplate, for the insert a size 9mm 5-6 posterior stabilized articular polyethylene insert, and for the patella a size 35 3-peg all poly patella. Brief History/Indication: MELISSA APONTE was known in clinic and had a history of severe right knee pain and swelling. She failed conservative treatment with anti-inflammatories, pain pills, intra-articular injections and physical therapy. She elected to undergo right total knee arthroplasty due to continued pain and decreased quality of life. Radiographs showed severe end stage osteoarthritis of the knee with bone on bone contact. Informed consent was obtained from the patient. She understood the risks of surgery included but were not limited to: bleeding, infection, damage to nearby structures, intraoperative fracture, nerve palsy, failure of the hardware, early loosening, knee stiffness or loss of motion, anesthesia complications, stroke, heart attack , blood clot and . She wished to proceed. Intra-Operative Findings: Intraoperatively the patient was noted to have severe loss of cartilage in all 3 compartments of the knee. Description of the Procedure: MELISSA APONTE was identified in the preanesthesia unit. Her right knee was marked as the correct operative side. Informed consent was signed and placed in the chart. The patient was taken to the operating room and placed under anesthesia without complication. A stewart catheter was placed. A tourniquet was placed on the right thigh. The right lower extremity was prepped and draped in the usual sterile fashion. Preoperative time-out was made to correctly identify the patient, side and site. Appropriate intraoperative antibiotics were given within one hour of incision. Tourniquet was inflated. A midline incision was made and carried sharply down to the extensor mechanism. A new 10 blade was used to make a standard medial parapatellar arthrotomy. The patella was subluxed laterally. Electrocautery was used to dissect soft tissue off the superomedial tibia to the midsagittal plane. The knee was flexed up. The anterior horn of the lateral meniscus and the ACL were sharply incised. A drill was used to enter the distal femur. The intramedullary distal femoral cutting guide was pinned on the distal femur. The oscillating saw was used to make the distal femoral cut. The external rotation guide was pinned on the distal femur and the distal femur was sized to a size 6. The size 6 multi-cutting jig was pinned on the distal femur. The oscillating saw was used to make the appropriate 4 chamfer cuts. Next the PCL was completely released. The extramedullary tibial cutting guide was pinned on the proximal tibia and the oscillating saw was used to make the proximal tibial cut perpendicular to the mechanical axis of the tibia. The bone was carefully removed. The knee was brought out into full extension. The spacer block was placed and had excellent fit with the knee in full extension. The medial and lateral ligaments were well balanced. The flexion and extension gaps were well balanced. The knee was flexed up. Lamina shoe handler was placed both medially and laterally. Any remaining meniscus was removed with electrocautery. Curved osteotome was used to remove any posterior osteophytes. The tibial tray and drop cyndi were placed and confirmed a satisfactory tibial cut. The size 6 right narrow femoral trial was impacted onto the distal femur. This trial had excellent fit and stability. The box for the posterior stabilized implant was prepared using a box cut osteotome and a reamer. Next a tibial tray trial and 9 mm insert trial was placed. The knee was taken through a range of motion and had full extension to 130 degrees of flexion. Patellofemoral tracking was satisfactory. The patella was inverted and sized to a size 35. Three peg holes were drilled through the size 35 drill guide. The trial patella was placed and the knee was taken through a range of motion. There was satisfactory patellofemoral tracking. All trials were removed. The tibia was subluxed anteriorly and sized to a size 5. The proximal tibial was prepared with a size 5 keel punch. All bony cut surfaces were irrigated with sterile saline and dried. Final implants were cemented into place starting with the tibia, followed by the femur, and last the patella. A 9 mm insert trial was placed and the knee was brought into full extension. Tourniquet was turned down and the knee was copiously irrigated with sterile saline. Electrocautery was used to obtain meticulous hemostasis. Once the cement had fully cured, the insert trial was removed. Any excess cement was removed from around the hardware and capsule. Final insert chosen was a 9 mm posterior stabilized Mora II articular insert size 5-6. Stability of the insert was checked and noted to be stable. The extensor mechanism was closed using number 1 vicryls. The rest of the incision was closed in a layered fashion using 0 and 2-0 vicryls. The skin was closed using 3-0 nylon suture. Sterile xeroform, 4x4s and webril were used to cover the incision. Adam wrap and cold pack were used to cover the dressings. The patients anesthesia was reversed without difficulty. She was taken to the PACU in stable condition. Intended weight-bearing will be as tolerated.
[2019-07-05] MEDS ORDERED: hydrALAZINE IV* 20 MG/ML VIAL ONE (19:54)
[2019-07-05] MEDS ORDERED: hydrALAZINE IV* 20 MG/ML VIAL IV SLOW PU ONE ×2 (19:55→22:22)
[2019-07-05] MEDS: Docusate CAP* 100 MG PO SCH (20:26)
[2019-07-05] MEDS: oxyCODONE TAB* 5 MG TAB PO PRN (20:27)
[2019-07-05] MEDS: Magnesium Hydroxide LIQ* 30 ML UDC PO SCH (20:28)
[2019-07-05] MEDS: traMADol TAB* 50 MG PO PRN (22:15)
[2019-07-06] MEDS: oxyCODONE TAB* 5 MG TAB PO PRN (00:34)
[2019-07-06] MEDS: ceFAZolin 1 GM ADVAN(*) 1 GM in NS 0.9% 50 ML* 50 ML IVPB SCH ×2 (02:55→09:39)
[2019-07-06] MEDS: oxyCODONE/Acetamin 5/325 MG* TAB PO PRN ×2 (05:22→09:39)
[2019-07-06] MEDS: Acetaminophen TAB* 325 MG PO SCH (05:25)
[2019-07-06] MEDS ORDERED: Levothyroxine TAB* 137 MCG TAB PO SCH (06:00)
[2019-07-06 06:28] LABS: Hematocrit 36 % (35-47); Hemoglobin 12.4 g/dL (12.0-16.0); Mean Platelet Volume 8.2 fL (7.4-10.4); Platelet Count 244 10^3/uL (150-450)
[2019-07-06 06:51] LABS: BUN/Creatinine Ratio 18.9 (8-20); EGFR African American 93.6 (>60); EGFR Non-African American 77.4 (>60)
[2019-07-06 07:49] VITALS: BP 147/80
[2019-07-06] MEDS: Docusate CAP* 100 MG PO SCH (08:16)
[2019-07-06] MEDS: Magnesium Hydroxide LIQ* 30 ML UDC PO SCH (08:16)
--- NOTE | 2019-07-06 08:41 | PN ---
Progress Note - Progress Note Date of Service: 07/06/19 SOAP: Subjective: POD #1 Right TKA. Doing very well, pain controlled. Would like to go home today. Denies CP/SOB, f/c, n/v or calf pain. Objective: Vital Signs: Temp Pulse Resp BP Pulse Ox 98.0 F 93 18 147/80 96 07/06/19 07:43 07/06/19 07:43 07/06/19 08:00 07/06/19 07:43 07/06/19 07:43 Gen: A&Ox3, NAD at rest sitting in bed RLE: Dressing C/D/I. Thigh and calf soft, NT. +f/e at ankles and MTPs. N/V intact. Labs: Laboratory Results - last 24 hr 07/05/19 07/05/19 07/06/19 09:50 14:15 06:01 Hgb 12.4 Hct 36 Plt Count 244 MPV 8.2 Sodium Potassium Chloride Carbon Dioxide Anion Gap BUN Creatinine Est GFR ( Amer) Est GFR (Non-Af Amer) BUN/Creatinine Ratio Glucose POC Glucose (mg/dL) 87 205 H Calcium 07/06/19 06:01 Hgb Hct Plt Count MPV Sodium 134 L Potassium 4.0 Chloride 100 L Carbon Dioxide 26 Anion Gap 8 BUN 14 Creatinine 0.74 Est GFR ( Amer) 93.6 Est GFR (Non-Af Amer) 77.4 BUN/Creatinine Ratio 18.9 Glucose 216 H POC Glucose (mg/dL) Calcium 9.0 Assessment: POD #1 Right TKA Plan: D/C home today F/u with Dr. Adhikari 10-14 days post op Eliquis for DVT ppx
--- NOTE | 2019-07-06 08:49 | DS ---
Orthopedic Discharge Summary - Discharge Summary Date of Admission:07/05/19 Date of Discharge: 07/06/19 Date of Surgery: 07/05/19 Attending Orthopedic Provider: Kelsea Adhikari MD Pre-operative Diagnosis: Right knee osteoarthritis Operative Procedure: Right total knee arthroplasty Disposition of Patient: Home Home care vs Outpatient services: Outpatient Condition of Patient: Stable Pain medication RX at discharge: Percocet DVT prophylaxis RX at discharge: Eliquis History: MELISSA APONTE is a 69 year old F with years of increasingly severe right pain. Patient has failed conservative management and has elected to undergo a right total knee replacement Hospital Course: MELISSA was admitted to [facility] on 07/05/19. Patient underwent a right total knee arthroplasty without complication followed by a brief recovery in PACU and transfer to the Short Stay Surgical Unit in stable condition. Our hospitalist service, physical therapy and occupational therapy also participated in this patients care. Post-op day 1: patient was alert and in no acute distress. Dressing was clean, dry and intact. Operative extremity dorsiflexion and plantarflexion intact, sensation intact to light touch distally, DP2+. Patient was deemed to be medically and orthopedically stable for discharge. Physical therapy goals were met. Home Medications Medication Instructions Recorded Confirmed Type Mometasone NASAL (NF) [Nasonex 1 spray BUCCAL DAILY PRN 10/26/14 07/05/19 History (NF)] Omeprazole CAP (NF) [Prilosec CAP* 40 mg PO QAM 10/26/14 07/05/19 History 20 MG] Sucralfate SUSP (NF) [Carafate 10 gm PO BID AC PRN 10/26/14 07/05/19 History SUSP (NF)] Albuterol HFA INHALER* [Ventolin 1 - 2 puff INH Q6H PRN 06/26/19 07/05/19 History HFA Inhaler*] Levothyroxine Sodium 137 mcg PO QAM 06/26/19 07/05/19 History Acetaminophen TAB* [Tylenol TAB*] 975 mg PO Q8HR tab 07/05/19 Rx Apixaban* [Eliquis*] 2.5 mg PO BID #60 tab 07/05/19 Rx Docusate CAP* [Colace Cap*] 100 mg PO BID PRN #60 cap 02/20/20 Rx oxyCODONE/Acetamin 5/325 MG* 1 tab PO Q4H PRN tab MDD 10 07/05/19 Rx [Percocet 5/325 TAB*] oxyCODONE/Acetamin 5/325 MG* 2 tab PO Q4H PRN #60 tab MDD 10 07/05/19 Rx [Percocet 5/325 TAB*] Discharge Instructions following Orthopedic Surgery: Activity: * Weight Bearing as tolerated * Continue physical therapy and occupational therapy exercises as shown * You have elected outpatient physical therapy, please start therapy as an outpatient right away. Wound care: * OK to shower on post-op day 3, no bathing, swimming, or submerging wound. * Use gentle soap, pat dry. Cover with gauze, KOMAL wrap or tape. Call Orthopedic office for: * Increased drainage * Redness * Increased pain * Fever Go to ER with shortness of breath or chest pain. Diet: * Regular diet * Increase fluids and fiber to prevent constipation. * Continue to use stool softeners, call office if no bowel motion within 48 hours. Medications See Home Medication List in your packet for medications that you should take after discharge. DVT Prophylaxis: Eliquis Dosin.5 mg, 1 tab every 12 hours x 30 days. Increases bleeding tendency Pain Control: Percocet 5/325 mg 1 tab for moderate pain and 2 tabs for severe pain by mouth every 4 hours as needed. Maximum of 10 tabs per day. Hold for sedation , wean off as soon as pain allows Please note that Percocet contains Tylenol (acetaminophen). Maximum daily dose of Tylenol is 4000 mg from all sources. Antibiotics are required prior to any dental work. FOLLOW UP: Follow up with Dr. Johnson] Within [10-14] days, call for appointment Please call our office with any questions or concerns ([phone])
[2019-07-06] MEDS ORDERED: Apixaban* 2.5 MG TAB PO SCH (09:00)
[2019-07-06] MEDS ORDERED: Vitamin THERAPEUTIC TAB PO SCH (09:00)
[2019-07-06] MEDS ORDERED: Pantoprazole TAB * 40 MG TAB PO SCH (09:00)
[2019-07-06] MEDS: traMADol TAB* 50 MG PO PRN (10:27)
== END 2019-07-06 11:36 | disposition home or self-care (01) ==
LOC: AA 08:05 → INTOOBSV 08:05 → SSU 12:32 → INTOOBSV 07-06 08:00 → OBSVTOIN 07-06 08:00
PROVIDERS: ADMIT Orthopaedic Surgery Adult Reconstructive Orthopaedic Surgery; ATTEND Orthopaedic Surgery Adult Reconstructive Orthopaedic Surgery
DX: M17.11 Unilateral primary osteoarthritis, right knee (principal); E66.01 Morbid (severe) obesity due to excess calories; I10 Essential (primary) hypertension; E03.9 Hypothyroidism, unspecified; K21.9 Gastro-esophageal reflux disease without esophagitis; Z79.890 Hormone replacement therapy; Z79.899 Other long term (current) drug therapy; Z88.1 Allergy status to other antibiotic agents; Z82.49 Family history of ischemic heart disease and other diseases of the circulatory system
CPT/HCPCS: 36415; 80048; 85014; 85018; 85049; 96374; 96376; A9270-GY; G0378; J0360; J0690; J1100; J2250; J2405; J2795; J3010; J3490